=== PATIENT | female | born 1935 | race Caucasian/White ===

== ENCOUNTER → 2016-09-15 | Outpatient (CLI) | payer OTHER, MEDICARE | LOC: RAD 13:56 | DX: M51.36 Other intervertebral disc degeneration, lumbar region (principal); M54.5 Low back pain ==

== ENCOUNTER 2016-09-29 11:21 | Emergency (ER) | payer OTHER, MEDICARE ==
[~2016-09-29] VITALS: Ht 157.5 cm; Wt 54.0 kg
[2016-09-29] MEDS ORDERED: TESSALON PERLE100 MG PO (12:26)
[2016-09-29] MEDS ORDERED: PROVENTIL HFA6.7 G1 INH (12:26)
[2016-09-29 12:45] VITALS: BP 132/86
== END 2016-09-29 12:45 | disposition home or self-care (01) ==
LOC: ER 11:21
DX: J06.9 Acute upper respiratory infection, unspecified (principal); J98.01 Acute bronchospasm; Z88.0 Allergy status to penicillin

== ENCOUNTER → 2019-07-23 | Outpatient (CLI) | payer OTHER, MEDICARE ==
[~2019-07-23] MED LIST: PROVENTIL HFA6.7 G1 INH; TESSALON PERLE100 MG PO
== END ==
LOC: SJCVC 14:19
DX: R93.1 Abnormal findings on diagnostic imaging of heart and coronary circulation (principal); I35.1 Nonrheumatic aortic (valve) insufficiency; E78.5 Hyperlipidemia, unspecified; I65.23 Occlusion and stenosis of bilateral carotid arteries; M81.0 Age-related osteoporosis without current pathological fracture; Z79.899 Other long term (current) drug therapy; Z87.891 Personal history of nicotine dependence

== ENCOUNTER → 2020-01-23 | Outpatient (CLI) | payer OTHER, MEDICARE | LOC: SJCVC 13:35 | PROVIDERS: ATTEND Internal Medicine | DX: R93.1 Abnormal findings on diagnostic imaging of heart and coronary circulation (principal); E78.5 Hyperlipidemia, unspecified; I65.23 Occlusion and stenosis of bilateral carotid arteries; I35.1 Nonrheumatic aortic (valve) insufficiency; Z79.899 Other long term (current) drug therapy; Z87.891 Personal history of nicotine dependence ==

== ENCOUNTER → 2020-07-23 | Outpatient (CLI) | payer OTHER, MEDICARE | LOC: SJCVCIMAG 10:57 | PROVIDERS: ATTEND Internal Medicine | DX: I65.23 Occlusion and stenosis of bilateral carotid arteries (principal); I08.2 Rheumatic disorders of both aortic and tricuspid valves; R93.1 Abnormal findings on diagnostic imaging of heart and coronary circulation; E78.5 Hyperlipidemia, unspecified; M81.0 Age-related osteoporosis without current pathological fracture; Z90.49 Acquired absence of other specified parts of digestive tract; Z90.710 Acquired absence of both cervix and uterus; Z88.0 Allergy status to penicillin; Z79.82 Long term (current) use of aspirin; Z79.899 Other long term (current) drug therapy; Z87.891 Personal history of nicotine dependence; Z82.49 Family history of ischemic heart disease and other diseases of the circulatory system ==